=== PATIENT | female | born 1940 | race Caucasian/White ===

== ENCOUNTER 2018-04-26 09:27 | Outpatient (CLI) | payer MEDICARE | END 2018-04-26 09:28 | disposition home or self-care (01) | LOC: BICMAMMO 09:27 | PROVIDERS: ATTEND Internal Medicine Rheumatology | DX: M81.0 Age-related osteoporosis without current pathological fracture (principal); D89.89 Other specified disorders involving the immune mechanism, not elsewhere classified; M17.12 Unilateral primary osteoarthritis, left knee | CPT/HCPCS: 77080 ==

== ENCOUNTER 2018-05-16 10:01 | Outpatient (CLI) | payer MEDICARE | END 2018-05-16 10:02 | disposition home or self-care (01) | LOC: BICRAD 10:01 | PROVIDERS: ATTEND Internal Medicine Rheumatology | DX: M81.0 Age-related osteoporosis without current pathological fracture (principal); M46.94 Unspecified inflammatory spondylopathy, thoracic region | CPT/HCPCS: 72070 ==